=== PATIENT | male | born 1985 | race Caucasian/White ===

== ENCOUNTER 2017-02-16 19:27 | Emergency (ER) | payer OTHER ==
[~2017-02-16] VITALS: Ht 185.4 cm; Wt 81.6 kg
[2017-02-16] MEDS ORDERED: BENA25TA9 PO (20:40)
[2017-02-16] MEDS ORDERED: PRED20TA PO (20:40)
[2017-02-16] MEDS ORDERED: diphenhydrAMINE 50 MG CAP PO ONE (20:45)
[2017-02-16] MEDS ORDERED: predniSONE 20 MG TAB PO ONE (20:45)
[2017-02-16 20:56] VITALS: BP 133/87
== END 2017-02-16 21:50 | disposition home or self-care (01) ==
LOC: M ED 20:39
DX: S00.96XA Insect bite (nonvenomous) of unspecified part of head, initial encounter (principal); S60.562A Insect bite (nonvenomous) of left hand, initial encounter; W57.XXXA Bitten or stung by nonvenomous insect and other nonvenomous arthropods, initial encounter; Y92.828 Other wilderness area as the place of occurrence of the external cause; Y93.89 Activity, other specified; Y99.1 Military activity; Z91.038 Other insect allergy status